=== PATIENT | male | born 1960 | race Hispanic/Latino ===

== ENCOUNTER → 2019-03-17 | Outpatient (CLI) | payer MEDICARE ==
[~2019-03-17] MED LIST: IOHEXOL-350 50ML VIAL IV ONE
== END | disposition home or self-care (01) ==
LOC: RAH 09:00
PROVIDERS: ATTEND Internal Medicine Cardiovascular Disease
DX: I65.23 Occlusion and stenosis of bilateral carotid arteries (principal); I73.9 Peripheral vascular disease, unspecified; I25.10 Atherosclerotic heart disease of native coronary artery without angina pectoris; K80.70 Calculus of gallbladder and bile duct without cholecystitis without obstruction
CPT/HCPCS: 75635; Q9967